=== PATIENT | female | born 1990 | race Caucasian/White ===

== ENCOUNTER 2016-10-15 12:22 | Emergency (ER) | payer OTHER ==
[~2016-10-15] VITALS: Ht 160 cm; Wt 96.4 kg
[~2016-10-15 12:22] MED LIST: BACTROBAN OINTM22 GM; BIAXIN500 MG PO; CLEOCIN300 MG PO; FERGON324 MG PO; GEODON20 MG PO; IBUPROFEN800 MG PO; MACROBID100 MG PO; NAPROSYN500 MG PO; NOHOMEMEDS; PRENACARE TABL1 EACH PO; SPRINTEC1 EACH PO; TYLENOL EXTRA500 MG PO; ULTRAM50 MG PO; VIBRAMYCIN100 MG PO
[2016-10-15] MEDS ORDERED: MOTRIN800 MG PO (16:07)
[2016-10-15 16:21] VITALS: BP 134/79
== END 2016-10-15 16:21 | disposition home or self-care (01) ==
LOC: EME 12:22
PROC: 0HQFXZZ Repair Right Hand Skin, External Approach (ICD-10-PCS; principal; 2016-10-15)
DX: S61.411A Laceration without foreign body of right hand, initial encounter (principal); X99.1XXA Assault by knife, initial encounter
CPT/HCPCS: 99281; 99284

== ENCOUNTER 2016-12-02 14:17 | Emergency (ER) | payer OTHER ==
[~2016-12-02] VITALS: Ht 160 cm; Wt 98.6 kg
[~2016-12-02 14:17] MED LIST changes: +MOTRIN800 MG PO
[2016-12-02 15:42] LABS: HEMATOCRIT 37.4 % (36.0-46.0); MCH 26.5 PG (29.0-34.0); MCHC 32.9 G/DL (30.0-36.0); MCV 80.6 FL (83-99); MEAN PLAT.VOLUME 10.4 uM^3 (9.5-12.4); PLATELET COUNT 298 K/uL (156-360); RBC DIS.WIDTH-CV 13.1 % (11.8-14.6); RED BLOOD COUNT 4.64 M/uL (3.80-5.20); WHITE BLOOD COUNT 4.8 K/uL (4.1-10.2)
[2016-12-02 15:42] LABS: ADD MIUA? YES; BILIRUBIN NEGATIVE; BLOOD MODERATE; COLOR AMBER ((YELLOW)); GLUCOSE (STRIP) NEGATIVE; KETONES NEGATIVE; LEUKOCYTES NEGATIVE; NITRITE NEGATIVE; PROTEIN (STRIP) 30; SPECIFIC GRAVITY 1.025 (1.000-1.030); UROBILINOGEN 0.2 MG/DL (0.2-1.0)
[2016-12-02 15:53] LABS: CHLORIDE 107 mEq/L (99-109); SODIUM 140 mEq/L (136-147)
[2016-12-02 15:56] LABS: GLUCOSE 88 mg/dL (70-99)
[2016-12-02 15:57] LABS: ANION GAP 9 MEQ/L (2-14); TOTAL BILIRUBIN 0.4 mg/dL (0.0-1.0)
[2016-12-02 15:59] LABS: ALKALINE PHOSPHATASE 82 IU/L (3-129); GFR ESTIMATE (CALCULATED) > 59 mL/min/
[2016-12-02 16:00] LABS: UREA NITROGEN (BUN) 12 mg/dL (9-23)
[2016-12-02 16:09] LABS: QUANTITATIVE HCG < 4.0 MIU/ML
[2016-12-02 16:26] LABS: BACTERIA RARE /HPF; EPITHELIAL CELLS 1+ /HPF; MUCUS NONE SEEN /LPF; RED BLOOD CELLS 0-5 /HPF (0-5); UCUL ADDED? NO; WHITE BLOOD CELLS 0-5 /HPF (0-5)
[2016-12-02] MEDS ORDERED: BENTYL10 MG PO (16:50)
[2016-12-02] MEDS ORDERED: IMODIUM A-D2 M2 PO (16:50)
[2016-12-02] MEDS ORDERED: ZOFRAN ODT4 MG PO (16:50)
[2016-12-02 16:56] VITALS: BP 130/80
== END 2016-12-02 19:14 | disposition home or self-care (01) ==
LOC: EME 14:17
DX: R11.0 Nausea (principal); R19.7 Diarrhea, unspecified
CPT/HCPCS: 80053; 81003; 84702; 85027; 99281; 99284

== ENCOUNTER 2017-01-13 23:31 | Emergency (ER) | payer OTHER ==
[~2017-01-13] VITALS: Ht 160 cm; Wt 99.6 kg
[~2017-01-13 23:31] MED LIST changes: +BENTYL10 MG PO; +IMODIUM A-D2 M2 PO; +ZOFRAN ODT4 MG PO
[2017-01-14 00:22] LABS: HEMATOCRIT 36.3 % (36.0-46.0); MCHC 33.1 G/DL (30.0-36.0); MCV 81.8 FL (83-99); MEAN PLAT.VOLUME 10.5 uM^3 (9.5-12.4); PLATELET COUNT 302 K/uL (156-360); RBC DIS.WIDTH-CV 13.7 % (11.8-14.6); RBC DIS.WIDTH-SD 40.3 % (39-53); RED BLOOD COUNT 4.44 M/uL (3.80-5.20); WHITE BLOOD COUNT 10.4 K/uL (4.1-10.2)
[2017-01-14 00:30] LABS: CHLORIDE 108 mEq/L (99-109); POTASSIUM 3.5 mEq/L (3.7-5.4); SODIUM 137 mEq/L (136-147)
[2017-01-14 00:32] LABS: GLUCOSE 92 mg/dL (70-99)
[2017-01-14 00:34] LABS: ANION GAP 5 MEQ/L (2-14)
[2017-01-14 00:36] LABS: GFR ESTIMATE (CALCULATED) > 59 mL/min/
[2017-01-14 00:37] LABS: UREA NITROGEN (BUN) 16 mg/dL (9-23)
[2017-01-14 00:50] LABS: QUANTITATIVE HCG 645.9 MIU/ML
[2017-01-14 02:40] VITALS: BP 123/68
== END 2017-01-14 02:47 | disposition home or self-care (01) ==
LOC: EME 23:31
PROVIDERS: Emergency Medicine
DX: O20.0 Threatened abortion (principal); Z3A.08 8 weeks gestation of pregnancy; Z88.0 Allergy status to penicillin; Z88.6 Allergy status to analgesic agent
CPT/HCPCS: 76801; 80048; 84702; 85027

== ENCOUNTER 2017-07-01 19:46 | Emergency (ER) | payer OTHER ==
[~2017-07-01] VITALS: Ht 160 cm; Wt 91.7 kg
[2017-07-01 20:16] LABS: ADD MIUA? YES; BILIRUBIN NEGATIVE; BLOOD MODERATE; COLOR YELLOW ((YELLOW)); GLUCOSE (STRIP) NEGATIVE; KETONES NEGATIVE; LEUKOCYTES NEGATIVE; NITRITE NEGATIVE; PROTEIN (STRIP) NEGATIVE; SPECIFIC GRAVITY 1.025 (1.000-1.030); UROBILINOGEN 0.2 MG/DL (0.2-1.0)
[2017-07-01 20:17] LABS: HEMATOCRIT 35.7 % (36.0-46.0); MCH 27.4 PG (29.0-34.0); MCHC 32.2 G/DL (30.0-36.0); MEAN PLAT.VOLUME 10.2 uM^3 (9.5-12.4); PLATELET COUNT 247 K/uL (156-360); RBC DIS.WIDTH-CV 13.2 % (11.8-14.6); RBC DIS.WIDTH-SD 41.1 % (39-53); WHITE BLOOD COUNT 8.7 K/uL (4.1-10.2)
[2017-07-01 20:26] LABS: CHLORIDE 114 mEq/L (99-109); POTASSIUM 4.4 mEq/L (3.7-5.4); SODIUM 143 mEq/L (136-147)
[2017-07-01 20:28] LABS: GLUCOSE 76 mg/dL (70-99)
[2017-07-01 20:29] LABS: ANION GAP 7 MEQ/L (2-14)
[2017-07-01 20:30] LABS: TOTAL BILIRUBIN 0.1 mg/dL (0.0-1.0)
[2017-07-01 20:32] LABS: BACTERIA NONE SEEN /HPF; EPITHELIAL CELLS 1+ /HPF; MUCUS TRACE /LPF; UCUL ADDED? NO; WHITE BLOOD CELLS 0-5 /HPF (0-5)
[2017-07-01 20:32] LABS: ALKALINE PHOSPHATASE 62 IU/L (3-129); GFR ESTIMATE (CALCULATED) 48 mL/min/
[2017-07-01 20:33] LABS: UREA NITROGEN (BUN) 20 mg/dL (9-23)
[2017-07-01 20:40] LABS: QUANTITATIVE HCG < 4.0 MIU/ML
[2017-07-01] MEDS ORDERED: INDOCIN50 MG PO (21:54)
[2017-07-01] MEDS ORDERED: VIBRAMYCIN100 MG PO (21:54)
[2017-07-01 22:25] VITALS: BP 123/81
== END 2017-07-01 22:26 | disposition home or self-care (01) ==
LOC: EME 19:46
DX: N72 Inflammatory disease of cervix uteri (principal); J45.909 Unspecified asthma, uncomplicated; K21.9 Gastro-esophageal reflux disease without esophagitis; F31.9 Bipolar disorder, unspecified; F90.9 Attention-deficit hyperactivity disorder, unspecified type; Z88.0 Allergy status to penicillin; Z88.1 Allergy status to other antibiotic agents; Z88.8 Allergy status to other drugs, medicaments and biological substances
CPT/HCPCS: 80053; 81003; 84702; 85027; 99281; 99284

== ENCOUNTER 2017-08-14 22:03 | Emergency (ER) | payer OTHER ==
[~2017-08-14] VITALS: Ht 160 cm; Wt 87.5 kg
[~2017-08-14 22:03] MED LIST changes: +INDOCIN50 MG PO
[2017-08-14 22:49] LABS: HEMATOCRIT 37.2 % (36.0-46.0); HEMOGLOBIN 12.2 G/DL (11.9-15.5); MCH 27.7 PG (29.0-34.0); MCHC 32.8 G/DL (30.0-36.0); MCV 84.4 FL (83-99); PLATELET COUNT 267 K/uL (156-360); RBC DIS.WIDTH-CV 13.2 % (11.8-14.6); RBC DIS.WIDTH-SD 40.8 % (39-53); RED BLOOD COUNT 4.41 M/uL (3.80-5.20); WHITE BLOOD COUNT 11.8 K/uL (4.1-10.2)
[2017-08-14 22:58] LABS: CHLORIDE 107 mEq/L (99-109); SODIUM 141 mEq/L (136-147)
[2017-08-14 23:00] LABS: GLUCOSE 72 mg/dL (70-99)
[2017-08-14 23:03] LABS: CREATININE 0.9 mg/dL (0.6-1.3); GFR ESTIMATE (CALCULATED) > 59 mL/min/
[2017-08-14 23:04] LABS: UREA NITROGEN (BUN) 14 mg/dL (9-23)
[2017-08-14 23:13] LABS: QUANTITATIVE HCG < 4.0 MIU/ML
[2017-08-15 00:07] LABS: APPEARANCE SL.HAZY ((CLEAR)); BILIRUBIN NEGATIVE; BLOOD LARGE; COLOR YELLOW ((YELLOW)); GLUCOSE (STRIP) NEGATIVE; KETONES NEGATIVE; LEUKOCYTES NEGATIVE; NITRITE NEGATIVE; PROTEIN (STRIP) 30; SPECIFIC GRAVITY 1.029 (1.000-1.030); UROBILINOGEN 0.2 MG/DL (0.2-1.0)
[2017-08-15 00:11] LABS: BACTERIA NONE SEEN /HPF; EPITHELIAL CELLS RARE /HPF; MUCUS 1+ /LPF; UCUL ADDED? NO; WHITE BLOOD CELLS 0-5 /HPF (0-5)
[2017-08-15 01:39] VITALS: BP 98/72
== END 2017-08-15 01:46 | disposition home or self-care (01) ==
LOC: EME 22:03
DX: S09.90XA Unspecified injury of head, initial encounter (principal); K21.9 Gastro-esophageal reflux disease without esophagitis; J45.909 Unspecified asthma, uncomplicated; F31.9 Bipolar disorder, unspecified; F90.9 Attention-deficit hyperactivity disorder, unspecified type; Y08.89XA Assault by other specified means, initial encounter; Y07.03 Male partner, perpetrator of maltreatment and neglect; Z88.6 Allergy status to analgesic agent; Z88.1 Allergy status to other antibiotic agents; Z88.0 Allergy status to penicillin; Z88.8 Allergy status to other drugs, medicaments and biological substances
CPT/HCPCS: 70450; 80048; 80048 91; 81003; 84702; 85025; 85027; 99281; 99285; J1100; J1200; J2765; J7030

== ENCOUNTER 2017-08-29 13:59 | Emergency (ER) | payer OTHER ==
[~2017-08-29] VITALS: Ht 160 cm; Wt 89.0 kg
[2017-08-29 15:29] LABS: HEMATOCRIT 35.4 % (36.0-46.0); HEMOGLOBIN 11.9 G/DL (11.9-15.5); MCH 28.1 PG (29.0-34.0); MCHC 33.6 G/DL (30.0-36.0); MCV 83.5 FL (83-99); PLATELET COUNT 241 K/uL (156-360); RBC DIS.WIDTH-CV 13.1 % (11.8-14.6); RBC DIS.WIDTH-SD 39.3 % (39-53); RED BLOOD COUNT 4.24 M/uL (3.80-5.20); WHITE BLOOD COUNT 6.8 K/uL (4.1-10.2)
[2017-08-29 15:39] LABS: ALBUMIN 3.9 g/dL (3.2-4.8); CHLORIDE 110 mEq/L (99-109); POTASSIUM 3.7 mEq/L (3.7-5.4); SODIUM 140 mEq/L (136-147)
[2017-08-29 15:42] LABS: GLUCOSE 82 mg/dL (70-99); TOTAL PROTEIN 6.7 g/dL (6.4-8.3)
[2017-08-29 15:44] LABS: TOTAL BILIRUBIN 0.3 mg/dL (0.0-1.0)
[2017-08-29 15:45] LABS: ALKALINE PHOSPHATASE 62 IU/L (3-129); CREATININE 0.8 mg/dL (0.6-1.3); GFR ESTIMATE (CALCULATED) > 59 mL/min/
[2017-08-29 15:46] LABS: UREA NITROGEN (BUN) 12 mg/dL (9-23)
[2017-08-29 15:47] LABS: AST (GOT) 10 IU/L (2-34)
[2017-08-29 15:48] LABS: ALT (GPT) 12 IU/L (3-49)
[2017-08-29 15:54] LABS: QUANTITATIVE HCG < 4.0 MIU/ML
[2017-08-29 17:05] LABS: APPEARANCE CLEAR ((CLEAR)); BILIRUBIN NEGATIVE; BLOOD MODERATE; COLOR YELLOW ((YELLOW)); GLUCOSE (STRIP) NEGATIVE; KETONES NEGATIVE; LEUKOCYTES NEGATIVE; NITRITE NEGATIVE; PROTEIN (STRIP) NEGATIVE; SPECIFIC GRAVITY 1.025 (1.000-1.030); UROBILINOGEN 0.2 MG/DL (0.2-1.0)
[2017-08-29 17:22] LABS: BACTERIA RARE /HPF; EPITHELIAL CELLS RARE /HPF; MUCUS TRACE /LPF; UCUL ADDED? NO; WHITE BLOOD CELLS 0-5 /HPF (0-5)
[2017-08-29 17:51] VITALS: BP 129/78
== END 2017-08-29 17:51 | disposition home or self-care (01) ==
LOC: EME 13:59
PROVIDERS: Physician Assistant
DX: K59.00 Constipation, unspecified (principal); N91.2 Amenorrhea, unspecified; J45.909 Unspecified asthma, uncomplicated; K21.9 Gastro-esophageal reflux disease without esophagitis; F90.9 Attention-deficit hyperactivity disorder, unspecified type; Z88.0 Allergy status to penicillin; Z88.8 Allergy status to other drugs, medicaments and biological substances
CPT/HCPCS: 80053; 81003; 84702; 85027; 99281; 99284

== ENCOUNTER 2017-09-14 12:51 | Emergency (ER) | payer OTHER ==
[~2017-09-14] VITALS: Ht 160 cm; Wt 85.0 kg
[2017-09-14] MEDS ORDERED: FLONASE16 G1 BOTH NARES (17:09)
[2017-09-14] MEDS ORDERED: ZITHROMAX Z-PA250 MG PO (17:09)
[2017-09-14 18:06] VITALS: BP 120/84
== END 2017-09-14 17:25 | disposition home or self-care (01) ==
LOC: EME 12:51
PROVIDERS: Physician Assistant
DX: J01.90 Acute sinusitis, unspecified (principal); N91.2 Amenorrhea, unspecified; Z88.0 Allergy status to penicillin; Z88.1 Allergy status to other antibiotic agents; Z88.6 Allergy status to analgesic agent; Z88.8 Allergy status to other drugs, medicaments and biological substances
CPT/HCPCS: 71046; 84702; 87502; 99281; 99284

== ENCOUNTER 2017-12-14 13:54 | Emergency (ER) | payer OTHER ==
[~2017-12-14] VITALS: Ht 157.5 cm; Wt 93.0 kg
[~2017-12-14 13:54] MED LIST changes: +FLONASE16 G1 BOTH NARES; +ZITHROMAX Z-PA250 MG PO
[2017-12-14 14:29] LABS: HEMATOCRIT 37.7 % (36.0-46.0); HEMOGLOBIN 12.8 G/DL (11.9-15.5); MCH 28.4 PG (29.0-34.0); MCV 83.6 FL (83-99); PLATELET COUNT 265 K/uL (156-360); RBC DIS.WIDTH-CV 12.7 % (11.8-14.6); RBC DIS.WIDTH-SD 38.7 % (39-53); RED BLOOD COUNT 4.51 M/uL (3.80-5.20); WHITE BLOOD COUNT 6.6 K/uL (4.1-10.2)
[2017-12-14 14:40] LABS: APPEARANCE CLEAR ((CLEAR)); BILIRUBIN NEGATIVE; BLOOD MODERATE; COLOR YELLOW ((YELLOW)); GLUCOSE (STRIP) NEGATIVE; KETONES NEGATIVE; LEUKOCYTES NEGATIVE; NITRITE NEGATIVE; PROTEIN (STRIP) NEGATIVE; SPECIFIC GRAVITY 1.019 (1.000-1.030); UROBILINOGEN 0.2 MG/DL (0.2-1.0)
[2017-12-14 14:42] LABS: ALBUMIN 4.1 g/dL (3.2-4.8); CHLORIDE 108 mEq/L (99-109); POTASSIUM 4.3 mEq/L (3.7-5.4); SODIUM 141 mEq/L (136-147)
[2017-12-14 14:44] LABS: GLUCOSE 91 mg/dL (70-99); TOTAL PROTEIN 7.4 g/dL (6.4-8.3)
[2017-12-14 14:45] LABS: BACTERIA NONE SEEN /HPF; EPITHELIAL CELLS NONE SEEN /HPF; HYALINE CASTS 0-5 /LPF; MUCUS TRACE /LPF; UCUL ADDED? NO; WHITE BLOOD CELLS 0-5 /HPF (0-5)
[2017-12-14 14:46] LABS: TOTAL BILIRUBIN 0.3 mg/dL (0.0-1.0)
[2017-12-14 14:48] LABS: ALKALINE PHOSPHATASE 61 IU/L (3-129); CREATININE 0.8 mg/dL (0.6-1.3); GFR ESTIMATE (CALCULATED) > 59 mL/min/
[2017-12-14 14:49] LABS: AST (GOT) 11 IU/L (2-34); UREA NITROGEN (BUN) 14 mg/dL (9-23)
[2017-12-14 14:51] LABS: ALT (GPT) 11 IU/L (3-49)
[2017-12-14 14:56] LABS: QUANTITATIVE HCG < 4.0 MIU/ML
[2017-12-14 17:38] VITALS: BP 106/59
== END 2017-12-14 17:40 | disposition home or self-care (01) ==
LOC: EME 13:54
PROVIDERS: Physician Assistant Medical
DX: N93.9 Abnormal uterine and vaginal bleeding, unspecified (principal); J45.909 Unspecified asthma, uncomplicated; K21.9 Gastro-esophageal reflux disease without esophagitis; F90.9 Attention-deficit hyperactivity disorder, unspecified type; Z88.0 Allergy status to penicillin; Z88.8 Allergy status to other drugs, medicaments and biological substances
CPT/HCPCS: 76856; 80053; 81003; 84702; 85027; 99281; 99285; J3010